=== PATIENT | male | born 1975 | race Two or more races ===

== ENCOUNTER → 2025-03-06 | Outpatient (CLI) | payer BC, SELFPAY ==
--- NOTE | 2025-03-06 15:58 | XR_ITS ---
Examination: Bilateral hands, 6 views. Technique: AP, Oblique, Lateral each hand total 6 views Date and time of exam: March 06, 2025, 1604 hours INDICATIONS: Bilateral hand pain 6 months Findings: Mild osteopenia. Mild narrowing of right third metacarpal phalangeal joint Mild narrowing second and third left metacarpal phalangeal joints No erosive arthritis No fractures IMPRESSION: Osteoarthritis as above
== END | disposition home or self-care (01) ==
LOC: CDIM 15:48
PROVIDERS: PCP Family Medicine; Referring Provider Registered Nurse; Visit Provider Registered Nurse
DX: M19.042 Primary osteoarthritis, left hand (principal); M19.041 Primary osteoarthritis, right hand
CPT/HCPCS: 73130